=== PATIENT | male | born 1960 | race Caucasian/White ===

== ENCOUNTER 2017-10-06 12:33 | Day surgery (SDC) | payer OTHER ==
[~2017-10-06 12:33] MED LIST: Lactated Ringers 1,000 ML IV SCH
[2017-10-06] MEDS ORDERED: Lidocaine 2% 5 ML SDV ONE (12:52)
[2017-10-06] MEDS ORDERED: Midazolam 1 MG/ML 2 ML SDV ONE (12:53)
[2017-10-06] MEDS ORDERED: fentaNYL 100 MCG/2 ML SDV ONE (12:53)
[2017-10-06] MEDS ORDERED: Propofol 200 MG/20 ML SDV ONE ×2 (12:53→12:55)
--- NOTE | 2017-10-06 13:10 | PCM.PREANE ---
Preanesthetic Assessment - Anesthesia/Transfusion/Family Hx Anesthesia History: Prior Anesthesia Reaction Other Type of Anesthesia Reaction Comment: PT STATES HE IS SLOW TO WAKE UP AFTER ANESTHESIA Family History of Anesthesia Reaction: No Transfusion History: No Prior Transfusion(s) Intubation History: Unknown - Review of Systems General: No Symptoms Pulmonary: No Symptoms Cardiovascular: No Symptoms Gastrointestinal: Other (h/o sigmoid colom tubular adenoma 3 years ago) Neurological: No Symptoms Other: Reports: None - Physical Assessment NPO Status Date: 10/06/17 NPO Status Time: 00:00 O2 Sat by Pulse Oximetry: 96 Respiratory Rate: 16 Vital Signs: Last Vital Signs Temp 36.6 C 10/06/17 12:46 Pulse 91 10/06/17 12:46 Resp 16 10/06/17 12:46 BP 131/75 10/06/17 12:46 Pulse Ox 96 10/06/17 12:46 Height: 1.73 m Weight: 89.358 kg ASA Class: 2 Mental Status: Alert & Oriented x3 Airway Class: Mallampati = 2 Dentition: Reports: Normal Dentition, [place](s) (x2 upper front) Thyro-Mental Finger Breadths: 3 Mouth Opening Finger Breadths: 3 ROM/Head Extension: Full Lungs: Clear to Auscultation, Normal Respiratory Effort Cardiovascular: Regular Rate, Regular Rhythm - Allergies Allergies/Adverse Reactions: Allergies Allergy/AdvReac Type Severity Reaction Status Date / Time codeine Allergy Nausea and Verified 09/29/17 11:19 Vomiting - Blood Blood Available: No - Anesthesia Plan Pre-Op Medication Ordered: None - Acknowledgements Anesthesia Type Planned: MAC Pt an Appropriate Candidate for the Planned Anesthesia: Yes Alternatives and Risks of Anesthesia Discussed w Pt/Guardian: Yes Pt/Guardian Understands and Agrees with Anesthesia Plan: Yes PreAnesthesia Questionnaire HEENT History: Reports: Allergic Rhinitis, Other (See Below) Other HEENT History: wears glasses/contacts Gastrointestinal History: Reports: Colon Polyp, GERD Genitourinary History: Reports: BPH Musculoskeletal History: Reports: Arthritis Other Musculoskeletal History: hx of arthritis of hands and feet Psychiatric History: Reports: PTSD Hematologic History: Reports: Anemia Oncologic (Cancer) History: Reports: Other (See Below) Other Oncologic History: Testicular - Past Surgical History HEENT Surgical History: Reports: Other (See Below) Other HEENT Surgeries/Procedures: hx of left Tympanoplasty GI Surgical History: Reports: Colonoscopy (3 years ago- sigmoid polypectomy), Hernia, Inguinal, Other (See Below) Other GI Surgeries/Procedures: hx of Exploratory Laparotomy at age 15 Male Surgical History: Reports: Other (See Below) Other Male Surgeries/Procedures: bilateral Orchiectomy for cancer 8 years ago Oncologic Surgical History: Reports: Other (See Below) Other Oncologic Surgeries/Procedures: bilateral Orchiectomy - SUBSTANCE USE Smoking Status *Q: Never Smoker Days Per Week of Alcohol Use: 0 Number of Drinks Per Day: 0 Total Drinks Per Week: 0 Recreational Drug Use History: No - HOME MEDS Home Medications: Home Meds Testosterone Cypionate [Depo-Testosterone] 0.75 ml IM ASDIRECTED 05/04/14 [ History] Albuterol [IJD: Albuterol HFA] 1 - 2 puff INH Q4H PRN 09/29/17 [History] Fluticasone Propionate [Flonase Allergy Relief] 1 spray NASBOTH DAILY PRN [History] Sildenafil [Viagra] 100 mg PO ASDIRECTED PRN 09/29/17 [History] - CURRENT (IN HOUSE) MEDS Current Meds: Current Medications Lactated Ringer's (Ringers, Lactated) 1,000 mls @ 125 mls/hr IV ASDIRECTED ERICA Last Admin: 10/06/17 12:48 Dose: 125 mls/hr Discontinued Medications Fentanyl (Sublimaze) Confirm Administered Dose 100 mcg .ROUTE .STK-MED ONE Stop: 10/06/17 12:54 Lidocaine (Xylocaine-Mpf 2%) Confirm Administered Dose 10 ml .ROUTE .STK-MED ONE Stop: 10/06/17 12:53 Midazolam HCl (Versed 1 Mg/Ml) Confirm Administered Dose 2 mg .ROUTE .STK-MED ONE Stop: 10/06/17 12:54 Propofol (Diprivan 20 Ml) Confirm Administered Dose 400 mg .ROUTE .STK-MED ONE Stop: 10/06/17 12:54 Propofol (Diprivan 20 Ml) Confirm Administered Dose 200 mg .ROUTE .STK-MED ONE Stop: 10/06/17 12:56
--- NOTE | 2017-10-06 14:50 | PCM48HPAN ---
Post Anesthesia Note - EVALUATION WITHIN 48HRS OF ANESTHETIC Vital Signs in Normal Range: Yes Patient Participated in Evaluation: Yes Respiratory Function Stable: Yes Airway Patent: Yes Cardiovascular Function Stable: Yes Hydration Status Stable: Yes Pain Control Satisfactory: Yes Nausea and Vomiting Control Satisfactory: Yes Mental Status Recovered: Yes Resp Rate: 10 - COMMENTS/OBSERVATIONS Free Text/Narrative:: no anesthesia problems
[2017-10-06 14:53] VITALS: BP 96/62
--- NOTE | 2017-10-06 18:20 | PCM.OPNOTE ---
- General Post-Op/Procedure Note Date of Surgery/Procedure: 10/06/17 Operative Procedure(s): egd w bx. colonoscopy Findings: see dict [id number] Pre Op Diagnosis: gerd and abd pain Post-Op Diagnosis: Same Anesthesia Technique: Moderate Sedation Primary Surgeon: Mendoza Martinez Pathology: egd bx Complications: None Condition: Good Free Text/Narrative:: Intake & Output 10/06/17 10/06/17 10/06/17 06:59 14:59 22:59 Intake Total 650 Balance 650
--- NOTE | 2017-10-07 09:15 | OR ---
SURGEON: Mendoza Martinez MD DATE OF PROCEDURE: 10/06/2017 PREOPERATIVE DIAGNOSES: Abdominal pain and gastroesophageal reflux disease. POSTOPERATIVE DIAGNOSES: EGD diagnosis is gastroesophageal reflux disease and colonoscopy diagnosis is internal hemorrhoids. PROCEDURES PERFORMED: 1. EGD with biopsy. 2. Colonoscopy. PROCEDURE IN DETAIL: EGD: The patient was taken to the endoscopy room, and with the SENIOR MANAGING DIRECTOR, Diprivan was administered. A well-lubricated EGD scope was gently inserted through the oropharynx, down the esophagus, passing through the gastroesophageal junction, into the stomach. The mucosa was examined upon the passage. Any etiology will be noted. Once in the stomach, we continued to advance to the distal antrum, passed through the pylorus into the second portion of the duodenum. Again, the mucosa was examined for any abnormality and etiology. The scope was then retrieved back to the stomach and then retroflexed to look at the fundus of the stomach. If a biopsy was indicated, we will biopsy the antrum, body, and gastroesophageal junction. The air will be sucked out while the scope is retrieved to reduce the patient's discomfort. The patient tolerated the procedure well. There were no intraoperative complications. Dr. Martinez was present through the whole procedure. Prior to surgery, a time-out had been called, the patient identified, procedure identified and antibiotic administered. Colonoscopy: The patient was taken to the endoscopy room. A time out was called, patient identified, and procedure identified. Diprivan was then administrated. Patient went from awake to sleep, hearing doctor talking or door closing is normal. Perineum inspection and digital examination were then performed. A well-lubricated colonoscope was gently inserted through the rectum, advanced past the rectosigmoid junction, the descending colon, splenic flexure, transverse colon, hepatic flexure, ascending colon, arrived to the cecum. Cecum was identified as dictated in the finding. Then the scope was carefully withdrawn while attention was paid to the mucosal surface for any abnormality. Air will be sucked out during the scope withdrawal. At the rectum, retroflexed to examine any rectal diseases, fistula or hemorrhoids. Patient tolerated procedure well. There were no intraoperative complications, and Dr. Martinez was present throughout the whole procedure. FINDINGS: EGD: The patient is easily sedated with SENIOR MANAGING DIRECTOR and Diprivan. The patient is soundly snoring. Oropharynx and proximal esophagus are free of disease and GE junction at 40 shows mild salmon color change, consistent with mild acid reflux and stomach rugae is normal in appearance. There is no food, bile, or blood observed. Antrum is slightly inflamed. Duodenum was grossly normal in appearance and retroflexed to look at the fundus of stomach. There is no hiatal hernia. Scope sucked out air while scope pulling out, and there was biopsies of the antrum, body, GE junction at 40. Colonoscopy: The patient is easily sedated with SENIOR MANAGING DIRECTOR and Diprivan. The patient is soundly snoring and bowel prep is left to be desirable. There is a large amount of opaque-liquid stool and no semi-formed stool. Colon is rather straightforward. Cecum indicated by ileocecal fold, one-to-one indentation, and light emittance. Appendix orifice is not observed. Mucosa examined upon scope pulling out with constant irrigation. The patient does not have diverticulosis, mass, growth, polyp, AV malformations, bleeding, ulceration. The patient does have mild internal hemorrhoids. No external hemorrhoids. The patient would benefit from repeat colonoscopy 10 years from today or if clinically indicated otherwise. MARICRUZ / AUBREY /[id number]
== END 2017-10-06 15:00 | disposition home or self-care (01) ==
LOC: MW.SDS 12:33
PROVIDERS: ATTEND Surgery
DX: K29.70 Gastritis, unspecified, without bleeding (principal); K21.9 Gastro-esophageal reflux disease without esophagitis; K64.8 Other hemorrhoids; J30.9 Allergic rhinitis, unspecified; N52.9 Male erectile dysfunction, unspecified; E29.1 Testicular hypofunction; N40.0 Benign prostatic hyperplasia without lower urinary tract symptoms; M19.90 Unspecified osteoarthritis, unspecified site; Z79.51 Long term (current) use of inhaled steroids; Z86.010 Personal history of colon polyps; Z88.5 Allergy status to narcotic agent
CPT/HCPCS: 43239; 45378; J2250; J3010; J7120; 00813; 88305; 88312; J2704

== ENCOUNTER 2018-04-30 10:10 | Day surgery (SDC) | payer OTHER ==
[2018-04-30] MEDS ORDERED: Midazolam 1 MG/ML 2 ML SDV ONE (10:57)
[2018-04-30] MEDS ORDERED: Propofol 200 MG/20 ML SDV ONE (10:57)
[2018-04-30] MEDS ORDERED: fentaNYL 100 MCG/2 ML SDV ONE (10:57)
--- NOTE | 2018-04-30 11:32 | PCM.PREANE ---
Preanesthetic Assessment - Anesthesia/Transfusion/Family Hx Anesthesia History: Prior Anesthesia Reaction Other Type of Anesthesia Reaction Comment: "Ii takes me along time to wake up" Family History of Anesthesia Reaction: No Transfusion History: No Prior Transfusion(s) Intubation History: Unknown - Review of Systems General: No Symptoms Pulmonary: No Symptoms Cardiovascular: No Symptoms Gastrointestinal: Abdominal Pain Neurological: No Symptoms Other: Reports: None - Physical Assessment Height: 1.73 m Weight: 92.079 kg ASA Class: 2 Mental Status: Alert & Oriented x3 Airway Class: Mallampati = 2 Dentition: Reports: Normal Dentition, [place](s) (x2 upper front) Thyro-Mental Finger Breadths: 3 Mouth Opening Finger Breadths: 3 ROM/Head Extension: Full Lungs: Clear to Auscultation, Normal Respiratory Effort Cardiovascular: Regular Rate, Regular Rhythm - Allergies Allergies/Adverse Reactions: Allergies Allergy/AdvReac Type Severity Reaction Status Date / Time codeine Allergy Nausea and Verified 04/27/18 09:05 Vomiting - Blood Blood Available: No - Anesthesia Plan Pre-Op Medication Ordered: None - Acknowledgements Anesthesia Type Planned: MAC Pt an Appropriate Candidate for the Planned Anesthesia: Yes Alternatives and Risks of Anesthesia Discussed w Pt/Guardian: Yes Pt/Guardian Understands and Agrees with Anesthesia Plan: Yes PreAnesthesia Questionnaire HEENT History: Reports: Allergic Rhinitis, Other (See Below) Other HEENT History: wears glasses/contacts Respiratory History: Reports: Other (See Below) (reactive airway desease) Gastrointestinal History: Reports: Colon Polyp, GERD, Helicobacter Pylori Genitourinary History: Reports: BPH Other Genitourinary History: hx testicular cancer Musculoskeletal History: Reports: Arthritis Other Musculoskeletal History: hx of arthritis of hands and feet - mild Psychiatric History: Reports: PTSD Endocrine/Metabolic History: Reports: Obesity/BMI 30+ Hematologic History: Reports: Other (See Below) (h/o anemia) Oncologic (Cancer) History: Reports: Other (See Below) Other Oncologic History: Testicular - Past Surgical History Head Surgeries/Procedures: Reports: None HEENT Surgical History: Reports: Tonsillectomy, Other (See Below) Other HEENT Surgeries/Procedures: hx of left Tympanoplasty GI Surgical History: Reports: Colonoscopy (x2), EGD, Hernia, Inguinal, Other ( See Below) Other GI Surgeries/Procedures: hx of Exploratory Laparotomy at age 15 Male Surgical History: Reports: Other (See Below) Other Male Surgeries/Procedures: bilateral Orchiectomy for cancer for testicular cancer 8 years ago Oncologic Surgical History: Reports: Other (See Below) Other Oncologic Surgeries/Procedures: bilateral Orchiectomy - SUBSTANCE USE Smoking Status *Q: Current Every Day Smoker (cigars) Recreational Drug Type: Reports: Other (see below) (h/o marijuana, LSD and cocaine use) - HOME MEDS Home Medications: Home Meds Testosterone Cypionate [Depo-Testosterone] 0.75 ml IM ASDIRECTED 05/04/14 [ History] Albuterol [IJD: Albuterol HFA] 1 - 2 puff INH Q4H PRN 09/29/17 [History] Fluticasone Propionate [Flonase Allergy Relief] 1 spray NASBOTH DAILY PRN [History] Sildenafil [Viagra] 100 mg PO ASDIRECTED PRN 09/29/17 [History] Ranitidine HCl [Zantac] 1 tab PO ASDIRECTED PRN 04/27/18 [History] - CURRENT (IN HOUSE) MEDS Current Meds: Current Medications Lactated Ringer's (Ringers, Lactated) 1,000 mls @ 125 mls/hr IV ASDIRECTED ERICA Discontinued Medications Fentanyl (Sublimaze) Confirm Administered Dose 100 mcg .ROUTE .STK-MED ONE Stop: 04/30/18 10:58 Lidocaine HCl (Xylocaine-Mpf 1%) Confirm Administered Dose 5 mls @ as directed .ROUTE .STK-MED ONE Stop: 04/30/18 10:57 Midazolam HCl (Versed 1 Mg/Ml) Confirm Administered Dose 2 mg .ROUTE .STK-MED ONE Stop: 04/30/18 10:58 Propofol (Diprivan 20 Ml) Confirm Administered Dose 200 mg .ROUTE .STK-MED ONE Stop: 04/30/18 10:58
--- NOTE | 2018-04-30 12:36 | PCM.OPNOTE ---
- General Post-Op/Procedure Note Date of Surgery/Procedure: 04/30/18 Operative Procedure(s): egd w bx Findings: see dict [id number] Pre Op Diagnosis: esophagitis Post-Op Diagnosis: Same Anesthesia Technique: Moderate Sedation Primary Surgeon: Mendoza Martinez Pathology: egd bx Complications: None Condition: Good
[2018-04-30 12:54] VITALS: BP 117/69
--- NOTE | 2018-04-30 13:12 | OR ---
SURGEON: Mendoza Martinez MD DATE OF PROCEDURE: 04/30/2018 PREOPERATIVE DIAGNOSIS: Esophagitis. POSTOPERATIVE DIAGNOSIS: Esophagitis. PROCEDURE PERFORMED: Esophagogastroduodenoscopy with biopsy. COMPLICATIONS: None. PROCEDURE IN DETAIL: EGD: The patient was taken to the endoscopy room, and with the CODING CLERK, Diprivan was administered. A well-lubricated EGD scope was gently inserted through the oropharynx, down the esophagus, passing through the gastroesophageal junction, into the stomach. The mucosa was examined upon the passage. Any etiology will be noted. Once in the stomach, we continued to advance to the distal antrum, passed through the pylorus into the second portion of the duodenum. Again, the mucosa was examined for any abnormality and etiology. The scope was then retrieved back to the stomach and then retroflexed to look at the fundus of the stomach. If a biopsy was indicated, we will biopsy the antrum, body, and gastroesophageal junction. The air will be sucked out while the scope is retrieved to reduce the patient's discomfort. The patient tolerated the procedure well. There were no intraoperative complications. Dr. Martinez was present through the whole procedure. Prior to surgery, a time-out had been called, the patient identified, procedure identified and antibiotic administered. FINDINGS: 1. The patient is easily sedated with CODING CLERK and Diprivan. The patient is soundly snoring. 2. Oropharynx and proximal esophagus are free of disease and no inflammation, stricture, or ulceration. Distal esophagus at distance at 40 shows pretty significant flame-like salmon-colored change and some areas look like it is a healed esophagitis ulcer and slightly better than six months ago, but still there. Stomach rugae is normal in appearance and antrum is a little bit inflamed. Duodenum was grossly normal in appearance and retroflexed look at the fundus of stomach, there was no hiatal hernia. Biopsy done at antrum, body, GE junction at 40 and sucked out the gas while scope pulling out. With the patient is on PPI and presumably compliant, esophagitis shows little improvement. The esophagitis should completely resolve in general in 5 to 10 days, and the patient need to be referred to GI for possible surgical management. MARICRUZ / AUBREY /[id number]
== END 2018-04-30 13:03 | disposition home or self-care (01) ==
LOC: MW.SDS 10:10
PROVIDERS: ATTEND Surgery
DX: K20.9 Esophagitis, unspecified (principal); K29.50 Unspecified chronic gastritis without bleeding; D64.9 Anemia, unspecified; J45.909 Unspecified asthma, uncomplicated; E29.1 Testicular hypofunction; N42.9 Disorder of prostate, unspecified; F17.290 Nicotine dependence, other tobacco product, uncomplicated; F43.10 Post-traumatic stress disorder, unspecified; E66.9 Obesity, unspecified; Z68.30 Body mass index [BMI] 30.0-30.9, adult; Z79.899 Other long term (current) drug therapy; Z88.5 Allergy status to narcotic agent
CPT/HCPCS: 43239; J2250; J2704; J3010; J7120

== ENCOUNTER 2025-06-07 12:00 | Emergency (ER) | payer OTHER ==
[2025-06-07] MEDS: Diphtheria,Pertussis(Acell),Tetanus Vaccine 0.5 ML Syringe IM ONE (13:05)
[2025-06-07 16:19] VITALS: BP 148/79; PULSE 89
== END 2025-06-07 16:19 | disposition home or self-care (01) ==
LOC: MW.ED 12:00
DX: S67.192A Crushing injury of right middle finger, initial encounter (principal); S61.212A Laceration without foreign body of right middle finger without damage to nail, initial encounter; E66.9 Obesity, unspecified; Z68.30 Body mass index [BMI] 30.0-30.9, adult; Z88.5 Allergy status to narcotic agent; Z79.899 Other long term (current) drug therapy; W23.1XXA Caught, crushed, jammed, or pinched between stationary objects, initial encounter; Z23 Encounter for immunization
CPT/HCPCS: 12002; 73130; 90471; 90715; 96372; 99283; J2003; J2270